=== PATIENT | female | born 1965 | race African-American/Black ===

== ENCOUNTER 2018-10-07 12:33 | Emergency (ER) | payer OTHER ==
[~2018-10-07] VITALS: Ht 160 cm; Wt 97.5 kg
[~2018-10-07 12:33] MED LIST: NORCO 5-325 TA1 EACH PO
[2018-10-07 13:42] LABS: ABSOLUTE NEUTROPHILS 6.4 thou/uL (1.4-8.2); BASOPHILS 0.7 % (0.0-2.0); EOSINOPHILS 0.1 % (0.0-3.0); HEMATOCRIT 32.7 % (37.0-47.0); LYMPHOCYTES 20.6 % (24.0-44.0); MCH 25.7 pg (26.0-34.0); MCHC 33.5 g/dL (28.0-37.0); MCV 76.8 fL (80.0-100.0); MONOCYTES 9.4 % (1.0-8.0); PLATELET COUNT 526 thou/uL (150-400); POLYS 69.2 % (36.0-66.0); RBC 4.26 mil/uL (4.20-5.00); WBC 9.2 thou/uL (4.0-11.0)
[2018-10-07 13:54] LABS: ANION GAP 6 mmol/L (7-16); BUN 9 mg/dL (7-18); CALCIUM 9.1 mg/dL (8.5-10.1); CHLORIDE 106 mmol/L (98-107); CO2 28 mmol/L (21-32); GLUCOSE 115 mg/dL (74-106); POTASSIUM 3.3 mmol/L (3.5-5.1); SODIUM 140 mmol/L (136-145)
[2018-10-07 14:03] LABS: TROPONIN-I <0.06 ng/mL (<0.06)
[2018-10-07 14:31] VITALS: BP 136/58
[2018-10-07] MEDS ORDERED: GUAIFEN-CODEINE10 ML PO (14:37)
[2018-10-07] MEDS ORDERED: PREDNISONE 20 M20 MG PO (14:37)
--- NOTE | 2018-10-08 08:20 | EKG ---
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: : 1965 Requested By: Shell Avila Order Number: [id number] MD: Miguel Rasmussen Measurements Intervals [place] Rate: 84 P: 54 [place]: 153 QRS: 9 QRSD: 93 T: 16 QT: 381 QTc: 451 Interpretive Statements Sinus rhythm Normal tracing No previous ECG available for comparison Electronically Signed On 10-08-2018 8:20:33 CDT by Miguel Rasmussen [email or web address] ��������������������������������������������� <ELECTRONICALLY SIGNED> ���������������������������������������� By: Miguel Rasmussen MD, [facility] ��������������������������������������������� 10/08/18 0820 1244 1244 Miguel Rasmussen MD, FACC /EPI
== END 2018-10-07 14:31 | disposition home or self-care (01) ==
LOC: ER 12:33
PROVIDERS: Emergency Medicine
DX: J40 Bronchitis, not specified as acute or chronic (principal)

== ENCOUNTER 2019-01-29 21:52 | Emergency (ER) | payer OTHER ==
[~2019-01-29] VITALS: Ht 160 cm; Wt 97.5 kg
[~2019-01-29 21:52] MED LIST changes: +GUAIFEN-CODEINE10 ML PO; +PREDNISONE 20 M20 MG PO
[2019-01-29 22:53] LABS: ABSOLUTE NEUTROPHILS 4.6 thou/uL (1.4-8.2); BASOPHILS 0.8 % (0.0-2.0); EOSINOPHILS 5.7 % (0.0-3.0); HEMOGLOBIN 11.2 gm/dL (12.0-15.0); LYMPHOCYTES 34.1 % (24.0-44.0); MCH 26.3 pg (26.0-34.0); MCHC 32.9 g/dL (28.0-37.0); MCV 79.8 fL (80.0-100.0); PLATELET COUNT 554 thou/uL (150-400); POLYS 50.4 % (36.0-66.0); RBC 4.25 mil/uL (4.20-5.00); RDW 17.5 % (10.5-14.5); WBC 9.1 thou/uL (4.0-11.0)
[2019-01-29 22:57] LABS: ANION GAP 12 mmol/L (7-16); BUN 8 mg/dL (7-18); CALCIUM 8.8 mg/dL (8.5-10.1); CHLORIDE 103 mmol/L (98-107); CO2 25 mmol/L (21-32); CREATININE 0.8 mg/dL (0.6-1.0); GLUCOSE 99 mg/dL (74-106); POTASSIUM 3.7 mmol/L (3.5-5.1); SODIUM 140 mmol/L (136-145)
[2019-01-29 23:08] LABS: ALBUMIN 3.2 g/dL (3.4-5.0); SGOT 13 U/L (15-37); SGPT 14 U/L (30-65); TOTAL BILIRUBIN 0.2 mg/dL (<0.1-1.0); TOTAL PROTEIN 8.3 g/dL (6.4-8.2); TROPONIN-I <0.06 ng/mL (<0.06)
[2019-01-29 23:30] VITALS: BP 129/85
[2019-01-29] MEDS ORDERED: PROAIR HFA8.5 GM INH (23:31)
[2019-01-29] MEDS ORDERED: VIRTUSSIN AC L118 ML PO (23:31)
[2019-01-29] MEDS ORDERED: PREDNISONE50 MG PO (23:31)
--- NOTE | 2019-01-30 10:24 | EKG ---
[place] [address] [facility] [place] [address] ELECTROCARDIOGRAM REPORT Name: CRYS QUACH Room #: [facility]#: [id number] Admission: 01/29/19 Attend Phys: Discharge: 01/30/19 Date of : 63 Report #: [id number] THIS REPORT FOR: //name// [facility] ED Test Date: 2019-01-29 Test Time: 22:16:09 Pat Name: CRYS VEE TAMIRAurelio Department: Room: Gender: F Tool [employer] Level Five: HARI : 1965 Requested By: Jermain Encarnacion Order Number: [id number] MD: Anjum Anne Measurements Intervals [place] Rate: 94 P: 37 [place]: 145 QRS: 8 QRSD: 87 T: 21 QT: 357 QTc: 447 Interpretive Statements Sinus rhythm Ventricular premature complex Low voltage, precordial leads Baseline wander in lead(s) I,aVR,aVL Compared to ECG 10/07/2018 12:44:12 Ventricular premature complex(es) now present Low QRS voltage now present Electronically Signed On 01-30-2019 10:24:21 CDT by Anjum Anne [email or web address] <ELECTRONICALLY SIGNED> By: Anjum Anne MD 01/30/19 1024 2216 15 Anjum Anne MD /EPI
== END 2019-01-30 00:06 | disposition home or self-care (01) ==
LOC: ER 21:52
PROVIDERS: Emergency Medicine
DX: J40 Bronchitis, not specified as acute or chronic (principal); D86.9 Sarcoidosis, unspecified